=== PATIENT | female | born 1995 | race Caucasian/White ===

== ENCOUNTER 2020-04-26 15:51 | Emergency (ER) | payer OTHER ==
[~2020-04-26] VITALS: Ht 157.5 cm; Wt 43.1 kg
--- NOTE | 2020-04-26 16:24 | NUR ---
FUEL HANDLER NOTIFIED.
[2020-04-26] MEDS ORDERED: CLONIDINE HCL 0.1 MG TABLET PO ONE (16:30)
[2020-04-26] MEDS ORDERED: ACETAMINOPHEN ES 500 MG TABLET PO ONE (16:30)
[2020-04-26] MEDS ORDERED: IV NS 0.9% 1,000 ML BAG IV ONE (16:30)
--- NOTE | 2020-04-26 16:30 | NUR ---
BIBMOTHER TO ER BED 13. AAOX4. NOT IN RESP DISTRESS, BREATHING EVEN AND UNLABORED. AMBULATORY. CAME IN FOR NOT FEELING WELL BECAUSE SHE HAS BEEN OFF SUBUTEX FOR THE PAST 4 DAYS. PT HAS BEEN TAKING SUBUTEX FOR THE PAST 9 MONTHS. WAS AT THE BEDSIDE FOR EVAL. ORDERS RECEIVED, NOTED AND CARRIED OUT.
[2020-04-26] MEDS ORDERED: CLONIDINE HCL 0.1 MG TABLET ONE (16:32)
[2020-04-26] MEDS ORDERED: ACETAMINOPHEN ES 500 MG TABLET ONE (16:42)
[2020-04-26 16:52] LABS: BASOPHILS % (AUTO) 0.4 % (0.0-2.0); EOSINOPHILS % (AUTO) 0.4 % (0.0-6.0); HEMATOCRIT 41 % (33-45); HEMOGLOBIN 13.4 g/dL (11.5-14.8); MEAN CORPUSCULAR HGB CONC 33 g/dl (31.0-36.0); MEAN CORPUSCULAR VOLUME 79 fL (82-100); MONOCYTES # (AUTO) 0.6 /CMM (0.1-1.30); MONOCYTES % (AUTO) 8.9 % (2.0-12.0); NEUTROPHILS # (AUTO) 5.6 /CMM (1.8-8.9); NEUTROPHILS % (AUTO) 77.3 % (43.0-81.0); PLATELET COUNT (AUTO) 399 /CMM (150-450); RED BLOOD CELL COUNT(AUTO) 5.21 MIL/uL (4.0-5.2); WHITE BLOOD COUNT (AUTO) 7.3 K/uL (4.3-11.0)
--- NOTE | 2020-04-26 16:53 | NUR ---
Lead Shop Operator Consult: Social Work consult was requested by the Emergency Room staff for 25 year old female who came in to the Emergency Room for pain due to not having her medications. Pt appears to be alert and oriented x4 (time, place, self and situation). Pt denies suicidal and homicidal ideation as well as auditory and visual hallucinations. Pt appears to be in a dysphoric mood and presents with a distressed affect. Pt stated that she has been experiencing pain and strong headaches to the point where she feels like she is going to throw up because she has not taken her suboxone for 4 days after being on it for 9 months. Pt stated that she is from [place] and that she came to the [facility] for treatment but she did not like it and so she left recently. Pt stated that she is currently with her mother who is in the parking lot. DEBO called the pts mother, Samia ([phone]), and spoke to her about the pts case. Pts mother asked for outpatient and inpatient resources for addiction in the [facility] so SW will present those referrals to her. Plan: DEBO spoke with the pts MD Dinah and informed her that per [facility] protocol the MD needs to give the pt the suboxone. SW then stated that she will give pt and the pts mother the [facility] where the pt can go and get her medications needs and a copy was placed in the pts chart. DEBO also provided the pts mother with outpatient/inpatient resources for addiction in the [facility] and a copy was also placed in the pts chart. Once the pt is medically cleared, pt can return to the [facility] that she is currently residing in with her mother, Samia ([phone]), located at [address] [place] [address].
[2020-04-26] MEDS ORDERED: BUPRENORPHINE HCL 8 MG TAB.SUBL SL ONE (17:00)
[2020-04-26 17:10] LABS: CALCIUM, SERUM 9.3 mg/dL (8.5-10.1); CARBON DIOXIDE 25 mmol/L (21-32); CHLORIDE 102 mmol/L (98-107); CREATININE 0.7 mg/dL (0.6-1.3); GLUCOSE 132 mg/dL (74-106); POTASSIUM 3.8 mmol/L (3.5-5.1); SODIUM SERUM 139 mmol/L (136-145); UREA NITROGEN, BLOOD 8 mg/dL (7-18)
[2020-04-26] MEDS ORDERED: BUPRENORPHINE HCL 2 MG TAB.SUBL SL ONE (17:11)
[2020-04-26 17:15] LABS: ACETAMINOPHEN 5 ug/ml (10-30); ALANINE AMINOTRANSFERASE 20 U/L (12-78); ALBUMIN 3.9 g/dL (3.4-5.0); ALCOHOL, BLOOD < 3 mg/dL (0-0); ALKALINE PHOSPHATASE 93 U/L (46-116); ASPARTATE AMINOTRANSFERASE 14 U/L (15-37); BILIRUBIN,DIRECT 0.1 mg/dL (0.0-0.2); BILIRUBIN,TOTAL 0.3 mg/dL (0.2-1.0); TOTAL PROTEIN, SERUM 7.9 g/dL (6.4-8.2)
--- NOTE | 2020-04-26 17:59 | NUR ---
Patient discharged to home in stable condition. Written and verbal after care instructions given. Patient verbalizes understanding of instruction.IV removed. Catheter intact and site benign. Pressure and 4x4 applied to site. No bleeding noted. Pt ambulatory with a steady gait
[2020-04-26 18:18] VITALS: BP 118/72
== END 2020-04-26 18:19 | disposition home or self-care (01) ==
LOC: ER 16:33
DX: F11.23 Opioid dependence with withdrawal (principal); R11.10 Vomiting, unspecified; R51.9 Headache, unspecified; Z20.822 Contact with and (suspected) exposure to COVID-19
CPT/HCPCS: 36415; 80048; 80076; 80299; 80320; 85025; 87426; 96360; 99284; C9803; J7030; G0480